=== PATIENT | male | born 1950 | race Caucasian/White ===

== ENCOUNTER → 2016-11-10 | Outpatient (CLI) | payer OTHER | LOC: FIMAGING 13:21 | PROVIDERS: ATTEND Nurse Practitioner Family | DX: S43.431A Superior glenoid labrum lesion of right shoulder, initial encounter (principal); M75.111 Incomplete rotator cuff tear or rupture of right shoulder, not specified as traumatic; M75.21 Bicipital tendinitis, right shoulder; M19.011 Primary osteoarthritis, right shoulder ==

== ENCOUNTER 2018-09-23 09:37 | Observation (INO) | payer OTHER ==
--- NOTE | 2018-09-22 18:02 | GHP ---
[f rep st] PREOP HISTORY AND PHYSICAL DATE OF ADMISSION: 09/23/2018 HISTORY: The patient is a 68-year-old male who presents with chronic problems with his left knee. Cathleen romero has a history of meniscus tear in 1998, treated surgically, he has also had excision of a patellar fragment approximately 40 years ago. He has had progressive pain involving the medial compartment of his knee. He is unable to walk any significant distance, and reports buckling and instability of th e knee. He has tried anti-inflammatory meds, including Aleve, and an kiln car unloader brace without signific ant relief. His pain and swelling cause decreased range of motion, alterations of his gait. This im pacts quality of life and activities of daily living. His radiographs of the left knee show signific ant tricompartment osteoarthritis, most significantly in the medial compartment. He has elected to u ndergo a left total knee arthroplasty. PAST MEDICAL HISTORY: He reports elevation of cholesterol. He has had his left knee procedure. ALLERGIES: He has no known drug allergies. MEDICATIONS: He is using simvastatin 10 mg p.o. daily. SOCIAL HISTORY: He is a nonsmoker. REVIEW OF SYSTEMS: Negative for cardiopulmonary disease. PHYSICAL EXAM: GENERAL: The patient is a well-developed, well-nourished male in no apparent distres s. HEAD AND NECK: Normocephalic, atraumatic. CHEST: Clear. CARDIOVASCULAR: Regular rate and rhy thm. ABDOMEN: Soft. NEUROLOGIC: He is alert and oriented x3. EXTREMITIES: Examination of the le ft knee shows prominence of the medial joint line. He has full extension and flexion. He has signif icantly increased varus malalignment of the left knee. He has some pseudolaxity medially. The ACL a nd PCL are stable. He is tender along the medial joint line. SKIN: Exam intact. NEUROVASCULAR: E xam intact. IMPRESSION: Left knee osteoarthritis. PLAN: Left total knee arthroplasty. Benefits and risks of surgery have been reviewed. He understan ds that the risks include infection, damage to blood vessel or nerve, failure or loosening of compone nts, need for revision, blood clot in the leg or lungs, or bleeding and need for transfusion. The ri gorous nature of the rehab has been reviewed. He wishes to proceed. /[id number]/MODL
[~2018-09-23 09:37] MED LIST: POVIDONE-IODINE 20 ML in SODIUM CL IRRIG SOLUTION 500 ML IRR ONE; ROPIVACAINE 0.2% 80 MG, EPINEPHrine 0.2 MG, KETOROLAC TROMETHAMINE 30 MG in SYRINGE 0 ML IU ONE; TRANEXAMIC ACID 1,000 MG in NS 100 ML IV ONE
[2018-09-23] MEDS ORDERED: ONDANSETRON 4 MG/2 ML VIAL IVP ONE (10:09)
[2018-09-23] MEDS ORDERED: FAMOTIDINE 20 MG TAB PO ONE (10:09)
[2018-09-23] MEDS ORDERED: ceFAZolin 2 GM/DEXTROSE 100 ML IV ONE (10:09)
[2018-09-23] MEDS ORDERED: GABAPENTIN 300 MG CAP PO ONE (10:09)
[2018-09-23] MEDS ORDERED: DEXAMETHASONE 4 MG/ML VIAL IVP ONE (10:09)
[2018-09-23] MEDS ORDERED: ACETAMINOPHEN 325 MG TAB PO ONE (10:09)
[2018-09-23] MEDS ORDERED: LR 1,000 ML IV ONE (10:10)
[2018-09-23] MEDS ORDERED: ceFAZolin 1 GM/5 ML SYR ONE (10:59)
[2018-09-23] MEDS ORDERED: PROPOFOL/EMULSION 500 MG/50 ML BOTTLE IV ONE (12:04)
[2018-09-23] MEDS ORDERED: fentaNYL 100 MCG/2 ML INJ ONE (12:04)
--- NOTE | 2018-09-23 12:09 | PDHPUP ---
History & Physical Update H&P update statement: This history and physical update is based on an assessment of the patient which was completed after admission or registration (within 24 hours), but prior to the surgery/procedure. no change H&P update: changes noted (no change)
[2018-09-23] MEDS ORDERED: ONDANSETRON 4 MG/2 ML VIAL ONE (12:11)
[2018-09-23] MEDS ORDERED: DEXAMETHASONE 4 MG/ML VIAL ONE (12:11)
[2018-09-23] MEDS ORDERED: LIDOCAINE 2% 5 ML SDV ONE (12:13)
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
[2018-09-23] MEDS ORDERED: MIDAZOLAM 2 MG/2 ML VIAL IVP ONE (12:28)
[2018-09-23] MEDS ORDERED: MIDAZOLAM 2 MG/2 ML VIAL ONE (12:31)
[2018-09-23] MEDS ORDERED: ACETAMINOPHEN 500 MG TAB PO PRN (14:20)
[2018-09-23] MEDS ORDERED: ENALAPRILAT DIHYDRATE 1.25 MG/ML VIAL IVP PRN (14:20)
[2018-09-23] MEDS ORDERED: fentaNYL 100 MCG/2 ML INJ IVP PRN (14:20)
[2018-09-23] MEDS ORDERED: NALOXONE HCL 0.4 MG/ML INJ IVP PRN (14:20)
[2018-09-23] MEDS ORDERED: HYDROmorphONE/DILAUDID 2 MG/ML INJ IVP PRN (14:20)
[2018-09-23] MEDS ORDERED: oxyCODONE IR 5 MG TAB PO PRN (14:20)
[2018-09-23] MEDS ORDERED: LR 500 ML IV PRN (14:20)
[2018-09-23] MEDS ORDERED: PROPOFOL 200 MG/20 ML VIAL ONE (14:28)
[2018-09-23] MEDS ORDERED: TEMAZEPAM 15 MG CAP PO PRN (14:56)
[2018-09-23] MEDS ORDERED: LACTULOSE 20 GM/30 ML UDCUP PO PRN (14:56)
[2018-09-23] MEDS ORDERED: PROMETHAZINE HCL 25 MG/ML INJ IVP PRN (14:56)
[2018-09-23] MEDS ORDERED: KETOROLAC 15 MG/1 ML SDV IVP ONE (14:56)
[2018-09-23] MEDS ORDERED: BISACODYL 10 MG SUPP PR PRN (14:56)
[2018-09-23] MEDS ORDERED: diphenhydrAMINE 25 MG CAP PO PRN (14:56)
[2018-09-23] MEDS ORDERED: POLYETHYLENE GLYCOL 3350 17 GM PKT PO PRN (14:56)
[2018-09-23] MEDS ORDERED: METOCLOPRAMIDE 10 MG/2 ML VIAL IVP PRN (14:56)
[2018-09-23] MEDS ORDERED: CYCLOBENZAPRINE 10 MG TAB PO PRN (14:56)
[2018-09-23] MEDS ORDERED: ONDANSETRON 4 MG/2 ML VIAL IVP PRN (14:56)
[2018-09-23] MEDS ORDERED: MAGNESIUM HYDROXIDE 30 ML UDCUP PO PRN (14:56)
[2018-09-23] MEDS ORDERED: ONDANSETRON DISINTEGRATING 4 MG TAB PO PRN (14:56)
[2018-09-23] MEDS ORDERED: DIPHENOXYLATE/ATROPINE LOMOTIL 1 TAB PO PRN (14:56)
[2018-09-23] MEDS ORDERED: PROMETHAZINE HCL 25 MG SUPPR PR PRN (14:56)
[2018-09-23] MEDS ORDERED: LR 1,000 ML IV SCH (15:00)
[2018-09-23] MEDS ORDERED: KETOROLAC 15 MG/1 ML SDV ONE (15:23)
--- NOTE | 2018-09-23 15:29 | GOP ---
[f rep st] OPERATIVE REPORT DATE OF OPERATION: SURGEON: Carrington Gaines MD SENIOR RESEARCH ASSOCIATE: VANNESSA Mortensen, ELLYA ANESTHESIOLOGIST: Jeffy Coello DO PREOPERATIVE DIAGNOSIS: Left knee osteoarthritis. POSTOPERATIVE DIAGNOSIS: Left knee osteoarthritis. PROCEDURE PERFORMED: Left total knee arthroplasty. FINDINGS: INDICATIONS: The patient is a 68-year-old male who presents with history, exam, and x-rays consisten t with severe tricompartment left knee osteoarthritis, [id number] in the medial side. He has tried appropriate conservative measures and non-operative treatment. He proceeds now for knee replacement to treat his severe osteoarthritis. DESCRIPTION OF PROCEDURE: The patient was taken to the operating room, and while seated, a spinal an esthetic was administered by Dr. Coello. He was then placed supine. He received preoperative antibio tics, Ancef, as well as tranexamic acid. A tourniquet was fit high on the left thigh and the left le g was prepped and draped free in neutral rotation with chlorhexidine. The limb was elevated, exsangu inated, and the tourniquet inflated to 275 mmHg. I made a longitudinal incision in the midline, I used a medial parapatellar arthrotomy. The patella was a bit challenging to invert because he had had previous lateral side surgery for removal of an ac cessory patella. A gentle soft tissue dissection around the edge of the patella was required and a s mall lateral release and that allowed me to invert his patella. His patella was oddly shaped. It wa s especially wide because of the previous patellar deformity. I removed 9 mm of cartilage and bone a nd sized the patellar surface to a size 38. I predrilled my holes for the pegs. After placement of the trial component, I was able to trim back some of the patellar irregularities to fit more tightly around the component. The knee was then flexed. I drilled a captain airline pilot hole in the distal femur and placed an intramedullary ro d. I made a +2 extra cut, 5 degrees of valgus, and sized the surface. It was incised between a 7 an d an 8 and I downsized to a 7. The component needed that dimension largely in AP diameter, not in wi dth. I moved the jig anteriorly and started as anteriorly as I could go to avoid notching and I sett led the jig back down to make a nice flush surface with the anterior femur and I completed the anteri or, posterior, and chamfer cuts, and the size 7 component was a good fit. I used extramedullary susanne ce on the tibia. I dialed in rotation, depth of cut, posterior slope, made my transverse cut. I siz ed this surface to a size 5 and I did trial reductions, and I fine-tune the rotation and completed e tibial prep. All the components were removed. Because this was a varus knee, I did a little soft tissue balancing, releasing a little of the distal MCL to gain a little better soft tissue balance. All the components were cemented, the femur size 7, the tibia size 5, the patella 38, and once the ce ment hardened, I did a series of trial reductions. I found that the 11 mm tray allowed excellent ful l extension, nice rollback and good collateral stability. Patella tracked well without any thumb pre ssure. I placed the 11 mm articular tray, snapping it into the tibial component, and the tourniquet was let down at 70 minutes. He received a second dose of tranexamic acid. I gained hemostasis with cautery. The knee was irriga gabriele with antibiotic saline, as well as a Betadine rinse. The arthrotomy was closed with interrupted [id number] sutures of 0 Mersilene, subcutaneous tissue with 2-0 Monocryl, and the skin with a ru nning subcuticular absorbable stitch. This was further reinforced with tissue glue, Steri-Strips, 4x 4s, sterile Webril, and a long-leg GABRIELE stocking. There were no complications. The estimated blood l oss about 30 cc. No drains. Specimens, include excised bone. All counts correct, and the patient w as taken in stable condition to recovery. My architectural administrative assistant, Chu Low, was a medical necessity for this knee replacement. SUMMARY OF COMPONENTS: This is a [employer] bi-cruciate stabilized knee, all component s are cemented, the femur is Oxinium, the tibial tray is cross-linked polyethylene. Femur size 7, ti jessika size 5, patella size 38, articular tray 11 mm thick.. /[id number]/MODL
[2018-09-23] MEDS ORDERED: ENALAPRILAT DIHYDRATE 1.25 MG/ML VIAL ONE (15:30)
[2018-09-23] MEDS: ACETAMINOPHEN 325 MG TAB PO SCH ×2 (17:48→23:45)
[2018-09-23] MEDS: SENNOSIDES/DOCUSATE SODIUM TAB PO SCH (20:31)
[2018-09-23] MEDS: ceFAZolin 2 GM/DEXTROSE 100 ML IV SCH (20:31)
[2018-09-23] MEDS: ASPIRIN 81 MG CHEWABLE TAB PO SCH (20:31)
[2018-09-23] MEDS: FAMOTIDINE 20 MG TAB PO SCH (20:32)
[2018-09-23] MEDS ORDERED: PRAVASTATIN SODIUM 20 MG TAB PO SCH (21:00)
[2018-09-24] MEDS: ceFAZolin 2 GM/DEXTROSE 100 ML IV SCH (05:29)
[2018-09-24] MEDS: ACETAMINOPHEN 325 MG TAB PO SCH ×2 (05:29→12:13)
--- NOTE | 2018-09-24 08:24 | SOAPPROG ---
SOAP Progress Note Assessment/Plan: Assessment: 09/24/18 POD#1 TKA, pain controlled Plan: 09/24/18 08:22 PT and home, oxy, celebrex,tyl, asa, out patient PT Objective: Vital Signs Temp Pulse Resp BP Pulse Ox 36.5 C 58 L 16 111/71 95 09/24/18 04:27 09/24/18 04:27 09/24/18 04:27 09/24/18 04:27 09/24/18 04:27 Laboratory Results 09/24/18 04:20 09/23/18 09/24/18 09/25/18 05:59 05:59 05:59 Intake Total 2095 Output Total 1450 Balance 645 ICD10 Worksheet Patient Problems: Problems Problem Status Onset Acute anterior epistaxis Acute Colitis Acute
[2018-09-24] MEDS: FAMOTIDINE 20 MG TAB PO SCH (09:00)
[2018-09-24] MEDS: ASPIRIN 81 MG CHEWABLE TAB PO SCH (09:00)
[2018-09-24] MEDS: SENNOSIDES/DOCUSATE SODIUM TAB PO SCH ×2 (09:01→09:04)
[2018-09-24 11:49] VITALS: BP 140/93
--- NOTE | 2018-09-24 11:50 | ASMTLACE ---
MOHIT Length of stay for Answers: 2 days current admission Acuity / Level of Answers: No Care: Did the patient have an inpatient admission? # of Emergency department Answers: 0 visits in the last 6 months Score: 2 Date Signed: 09/24/2018 11:49 AM Electronically Signed By:PRETTY Verma
--- NOTE | 2018-09-24 11:51 | ASMTCMCOM ---
CM Note CM Note Notes: Pt had planned knee surgery. PT rec home/outpatient, MD rec outpatient. No CM d/c needs identified. Date Signed: 09/24/2018 11:50 AM Electronically Signed By:PRETTY Verma
--- NOTE | 2018-09-28 11:03 | POSTANESTH ---
Post Anesthetic Evaluation Cardiovascular Status: Normal, Stable Respiratory Status: Normal, Stable Level of Consciousness/Mental Status: Can Participate in Eval, Alert and Oriented Pain Control: Adequate, Prn Tx Ordered Nausea/Vomiting Control: Adequate, Prn Tx Ordered Complications Possibly Related to Anesthesia: None Noted
== END 2018-09-24 12:50 | disposition home or self-care (01) ==
LOC: F3N 09:37
PROVIDERS: ADMIT Orthopaedic Surgery; ATTEND Orthopaedic Surgery
PROC: 0SRD069 Replacement of Left Knee Joint with Oxidized Zirconium on Polyethylene Synthetic Substitute, Cemented, Open Approach (ICD-10-PCS; principal; 2018-09-23 12:30)
DX: M17.12 Unilateral primary osteoarthritis, left knee (principal)
CPT/HCPCS: 27447; 73560; 88311; 97110; 97116; 97161; 97165; 97535; C1713; C1776; G0378; J0171; J0690; J1100; J1885; J2250; J2405; J2704; J2795; J3010

== ENCOUNTER → 2018-09-26 | Outpatient (CLI) | payer OTHER | LOC: FIMAGING 10:53 | PROVIDERS: ATTEND Orthopaedic Surgery | DX: R60.0 Localized edema (principal) ==